=== PATIENT | female | born 1975 | race Caucasian/White ===

== ENCOUNTER 2022-01-11 10:44 | Outpatient (REF) | payer MEDICAID, SELFPAY ==
--- NOTE | ~2022-01-11 | US_ITS ---
EXAMINATION: US PELVIS CLINICAL INFORMATION: Pelvic pain. COMPARISON: None. TECHNIQUE: Ultrasound of the pelvis is performed using both transabdominal and transvaginal transducers along with Doppler. Transvaginal imaging is performed due to inadequate visualization transabdominally. FINDINGS: Uterus: The uterus is anteverted and measures 9.9 x 4.4 x 4.6 cm. The double wall endometrial thickness is 0.7 cm. The uterus is smooth in contour and has normal myometrial echogenicity. No visible fibroid. Adnexa: Both ovaries are visualized. There is normal color flow to the adnexa. There is no ovarian torsion. There is no pelvic ascites or fluid collection. Right ovary measures 3.7 x 2.5 x 2.4 cm and volume 11.6 mL. There is a complex cyst measuring 2.3 x 2.0 x 2.1 cm. Left ovary measures 2.7 x 1.4 x 2.1 cm and volume 4.2 mL. There are prominent vessels in the left adnexa suggestive of pelvic venous congestion. US/US pelvic and transvaginal IMPRESSION: Complex right ovarian cyst measuring 2.3 cm. Unremarkable uterus and left ovary. Mild left pelvic venous congestion.
== END 2022-01-11 10:45 | disposition home or self-care (01) ==
LOC: HO.US 10:44
PROVIDERS: Visit Provider Advanced Practice Midwife
DX: R10.2 Pelvic and perineal pain (principal)
CPT/HCPCS: 76830; 76856

== ENCOUNTER 2022-03-02 09:48 | Outpatient (REF) | payer MEDICAID, SELFPAY ==
--- NOTE | ~2022-03-02 | US_ITS ---
EXAMINATION: US PELVIS CLINICAL INFORMATION: Right ovarian cyst. COMPARISON: None TECHNIQUE: Ultrasound of the pelvis is performed using both transabdominal and transvaginal transducers along with Doppler. Transvaginal imaging is performed due to inadequate visualization transabdominally. FINDINGS: UTERUS: The uterus is anteverted and measures 9.0 x 4.4 x 5.4 cm. The double wall endometrial thickness is 0.87 cm. The uterus is smooth in contour and has normal myometrial echogenicity. No visible fibroid. ADNEXA: Both ovaries are visualized. There is normal color flow to the adnexa. There is no ovarian torsion. There is no pelvic ascites or fluid collection. Right ovary measures 3.8 x 2.3 x 2.4 cm and volume 10.7 mL. There is an anechoic corpus luteum cyst measuring 2.3 x 1.8 x 1.5 cm. Previously it measured 2.3 x 2.0 x 2.1 cm. Previously right ovary measured 3.7 x 2.5 x 2.4 cm and volume 11.6 mL. Left ovary measures 2.5 x 1.7 x 1.8 cm and volume 4.0 mL. It appears unremarkable. Previously left ovary measured 2.7 x 1.4 x 2.1 cm and volume 4.2 mL. US/US pelvic and transvaginal IMPRESSION: Complex right ovarian cyst measuring 2.3 cm similar to previous study of 01/12/2022. No new cysts are seen in the right or the left ovary. The uterus is unremarkable. Previously seen mild left pelvic venous congestion is not apparent at this time. No major change from 01/11/2022.
== END 2022-03-02 09:49 | disposition home or self-care (01) ==
LOC: HO.HMGCX 09:48
PROVIDERS: Visit Provider Advanced Practice Midwife
DX: N83.201 Unspecified ovarian cyst, right side (principal)
CPT/HCPCS: 76830; 76856

== ENCOUNTER 2022-10-06 07:51 | Outpatient (REF) | payer MEDICAID, SELFPAY ==
--- NOTE | ~2022-10-06 | US_ITS ---
EXAMINATION: US ABDOMEN COMPLETE CLINICAL INFORMATION: Epigastric discomfort with nausea. COMPARISON: None TECHNIQUE: Real-time imaging of the abdominal viscera. FINDINGS: PANCREAS: Normal. ABDOMINAL AORTA: The proximal, mid, and distal segments are normal in caliber. INFERIOR VENA CAVA: Visualized portions are normal. LIVER: Normal. The liver is normal in size. The liver contour is normal. Parenchymal echogenicity is normal. No focal hepatic lesion. There is no intrahepatic biliary duct dilatation seen. GALLBLADDER: Surgically absent. COMMON BILE DUCT: Normal in caliber measuring 0.3 cm in diameter. RIGHT KIDNEY: Normal. No hydronephrosis. No renal calculi or focal parenchymal lesions. The kidney measures 11.0 cm in maximum dimension. LEFT KIDNEY: Normal. No hydronephrosis. No renal calculi or focal parenchymal lesions. The kidney measures 9.8 cm in maximum dimension. SPLEEN: Normal. The spleen measures 7.8 cm in maximum dimension. FREE FLUID: None. US/US abdomen complete IMPRESSION: Normal exam
== END 2022-10-06 07:52 | disposition home or self-care (01) ==
LOC: HO.US 07:51
PROVIDERS: PCP Internal Medicine; Visit Provider Family Medicine
DX: R11.0 Nausea (principal)
CPT/HCPCS: 76700

== ENCOUNTER 2022-12-21 | Outpatient (REF) | payer MEDICAID, SELFPAY ==
[2022-12-24 11:27] LABS: H Pylori Breath Test Positive (Negative)
== END 2022-12-21 00:01 | disposition home or self-care (01) ==
LOC: HO.LNP
PROVIDERS: Visit Provider Physician Assistant
DX: Z11.2 Encounter for screening for other bacterial diseases (principal); R11.0 Nausea
CPT/HCPCS: 36415; 83013; 99202

== ENCOUNTER → 2022-12-21 07:50 | Outpatient (BNVA) | payer MEDICAID, SELFPAY | PROVIDERS: PCP Internal Medicine; Referring Provider Internal Medicine; Visit Provider Physician Assistant | DX: R11.0 Nausea (principal); R10.13 Epigastric pain | CPT/HCPCS: 36415 ==

== ENCOUNTER → 2023-01-11 12:46 | Outpatient (BNVA) | payer MEDICAID, SELFPAY | PROVIDERS: PCP Internal Medicine; Visit Provider Physician Assistant | DX: A04.8 Other specified bacterial intestinal infections (principal) | CPT/HCPCS: 99212 ==

== ENCOUNTER 2023-02-22 09:00 | Outpatient (REF) | payer MEDICAID, SELFPAY | END 2023-02-22 09:01 | disposition home or self-care (01) | LOC: HO.LNP 09:00 | PROVIDERS: PCP Internal Medicine; Visit Provider Physician Assistant | DX: A04.8 Other specified bacterial intestinal infections (principal) | CPT/HCPCS: 36415; 83013; 99212 ==

== ENCOUNTER 2023-03-15 09:42 | Outpatient (REF) | payer MEDICAID, SELFPAY ==
--- NOTE | ~2023-03-15 | MM_ITS ---
EXAMINATION: MM SCREENING DIGITAL BREAST TOMOSYNTHESIS, BILATERAL CLINICAL INFORMATION: Screening. Asymptomatic. The lifetime risk of breast cancer based on the Tyrer-Cuzick Model is 10.7%. COMPARISON: Mammography: This study is compared with prior exams dating back to 2019. TECHNIQUE: Digital breast tomosynthesis is performed in both the craniocaudal and mediolateral oblique views along with computer-aided detection (CAD). Synthesized 2D images are generated from the tomosynthesis. FINDINGS: The breasts are heterogeneously dense, which may obscure small masses (ACR BI-RADS breast composition Category c). There are no significant masses, abnormal calcifications, or other abnormalities. MM/MM tomosynthesis screening BI IMPRESSION: No mammographic evidence of malignancy. ASSESSMENT: BI-RADS BI-RADS 1 - Negative RECOMMENDATION: Routine annual mammography screening. 1 year F/U This examination should not preclude the clinical evaluation of a suspicious palpable abnormality. This patient's information was entered into a reminder system with a target due date for their next mammogram.
== END 2023-03-15 09:43 | disposition home or self-care (01) ==
LOC: HO.MAMMO 09:42
PROVIDERS: PCP Internal Medicine; Visit Provider Internal Medicine
DX: Z12.31 Encounter for screening mammogram for malignant neoplasm of breast (principal)
CPT/HCPCS: 77063; 77067

== ENCOUNTER → 2023-03-15 10:30 | Outpatient (BNV) | payer MEDICAID, SELFPAY | PROVIDERS: PCP Internal Medicine; Visit Provider Radiology Diagnostic Radiology | DX: Z12.31 Encounter for screening mammogram for malignant neoplasm of breast (principal) | CPT/HCPCS: 77063; 77067 ==

== ENCOUNTER 2023-03-22 07:50 | Outpatient (AMB) | payer MEDICAID, SELFPAY ==
[2023-03-22 08:48] VITALS: BP 117/68; PULSE 59; BMI 26.7
--- NOTE | 2023-03-22 08:48 | A.OFFVIS_ITS ---
Intake Vital Signs 03/22/23 08:48 Height 5 ft Weight 136 lb 10.986 oz BMI 26.7 BP 117/68 Blood Pressure Location Lt brachial Position Sitting Pulse 59 Intake Visit Reasons: 4 weeks f/u discuss EGD/[facility] Intake Note: Елена presents in office as a est.patient for a 4week f/u PT CC: pt reports having no concerns pt denies any other GI Issues Clinical Quality Assurance Specialist Required: Yes Clinical Quality Assurance Specialist Language: Tajik Accompanied by: Self / Same As Patient Allergies No Known Allergies Allergy (Verified 03/22/23 08:49) Medication List - Last Reconciled 03/22/23 by Teri Khoury PA-C HPI HPI Comments History of Present Illness Details A 47 y/o female follow up seen 02/22-retreat for H pylori however she reports that she only took medication for 5 days in cause her stomach upset she did not want continue. She continues to have intermittent acid reflux-she does drink fair amount of caffeine, however she does not smoke or drink alcohol Though her appetite is good she has need no nausea or vomiting intermittent epigastric discomfort that resolved on its own nothing specific causes symptoms She has normal bowel pattern. No nausea, vomiting, hematemesis, hematochezia fever chills PFSH Surgical History History of tubal ligation Hx of cholecystectomy Family History Maternal Grandmother HTN (hypertension) Mother HTN (hypertension) Maternal Aunt Cancer Social History Household Members: Significant Other and Family Alcohol intake: never Patient Tobacco Use Status: Never used Tobacco Review of Systems Const All systems reviewed & are unremarkable except as noted in HPI and below Card Denies chest pain and Denies dyspnea Resp Denies dyspnea GI Reports abdominal pain, Denies change in bowel habits and Reports heartburn Physical Exam Vital Signs: Last Vital Signs Pulse 59 03/22/23 08:48 BP 117/68 03/22/23 08:48 BMI result Body Mass Index 26.7 Const General: cooperative, healthy appearing, comfortable and no acute distress Orientation/consciousness: patient oriented x3 Limitations: language barrier Eyes Sclerae: sclerae normal Resp Effort & Inspection: normal respiratory effort and able to speak in complete sentences Auscultation: clear to auscultation bilaterally and no wheezes Cardio Rate: regular rate Rhythm: regular rhythm Heart sounds: S1 normal heart sound present and S2 normal heart sound present GI Palpation (GI): Soft to palpation and nontender Auscultation: normal bowel sounds Neuro General: patient oriented x3 Extrem General: Yes full ROM Psych Appearance: grossly normal and well kempt Mental Status: mental status grossly normal Attitude: cooperative Thought content: Normal thought content present Assessment & Plan Assessment & Plan (1) H. pylori infection: Comment: H pylori UBT today-positive, re-treated did not complete antibiotic Code(s): A04.8 - Other specified bacterial intestinal infections Plan: EGD (2) Acid reflux: Code(s): K21.9 - Gastro-esophageal reflux disease without esophagitis Plan: Continue omeprazole 20 mg Avoid culprits EGD (3) Encounter for screening colonoscopy: Code(s): Z12.11 - Encounter for screening for malignant neoplasm of colon Plan: Index screening colonoscopy Plan EGD colonoscopy MiraLax Gatorade Continue omeprazole 20 daily Avoid culprits Orders: Orders EGD/[facility] Combo - GI Use Only Today K21.9 - Gastro-esophageal reflux disease without esophagitis, R11.0 - Nausea, Z12.11 - Encounter for screening for malignant neoplasm of colon Medications: New bisacodyl (Dulcolax (bisacodyl)) Take 4 tablets by mouth at 12:00pm the day before your procedure. 20 mg (4 x 5 mg) PO ONCE 1 day 4 tabs 0RF colonoscopy prep Z12.11 - Encounter for screening for malignant neoplasm of colon polyethylene glycol 3350 (Miralax) Take as directed by mouth the day before your procedure. 238 grams PO ONCE 1 day PRN 238 grams 0RF laxative effect omeprazole 20 mg PO DAILY 30 caps 5RF Patient Instructions: Continue omeprazole 20 mg daily Reflux precautions reviewed EGD colonoscopy, procedures/indications/prep reviewed literature given Aware she needs escort due to anesthesia Encouraged to call questions or concerns Appreciate the opportunity assist in the care the patient Coding Level of Care Code Est Pt Level 3 (34087) Diagnoses H. pylori infection A04.8 Acid reflux K21.9 Encounter for screening colonoscopy Z12.11 Time Spent (min) 30 Comment Clinical Quality Assurance Specialist
== END 2023-03-22 09:59 | disposition home or self-care (01) ==
PROVIDERS: PCP Internal Medicine; Visit Provider Physician Assistant
DX: A04.8 Other specified bacterial intestinal infections (principal); K21.9 Gastro-esophageal reflux disease without esophagitis; Z12.11 Encounter for screening for malignant neoplasm of colon
CPT/HCPCS: 99213

== ENCOUNTER → 2023-03-22 07:50 | Outpatient (BNVA) | payer MEDICAID, SELFPAY | PROVIDERS: PCP Internal Medicine; Visit Provider Physician Assistant | DX: Z12.11 Encounter for screening for malignant neoplasm of colon (principal); K21.9 Gastro-esophageal reflux disease without esophagitis; A04.8 Other specified bacterial intestinal infections | CPT/HCPCS: 99213 ==

== ENCOUNTER 2023-04-11 10:36 | Outpatient (REF) | payer MEDICAID, SELFPAY ==
[2023-04-11 11:19] LABS: Anion Gap 12 (12-20); Blood Urea Nitrogen 5 mg/dL (9-16); Calcium 9.7 mg/dL (8.4-10.2); Carbon Dioxide 23 mmol/L (22-29); Chloride 105 mmol/L (96-108); Estimated Glomerular Filt Rate > 60; Glucose Random 87 mg/dL (60-115); Potassium 3.7 mmol/L (3.3-5.1); Sodium 136 mmol/L (135-145)
[2023-04-11 19:35] LABS: Alanine Aminotransferase 24 U/L (0-31); Albumin Level 4.1 g/dL (3.5-5.0); Alkaline Phosphatase 76 U/L (39-117); Aspartate Amino Transferase 27 U/L (5-31); Bilirubin Direct 0.1 mg/dL (0.0-0.5); Bilirubin Total 0.3 mg/dL (0.0-1.0); Total Protein 7.7 g/dL (6.5-8.0)
== END 2023-04-11 10:37 | disposition home or self-care (01) ==
LOC: HO.HHCL 10:36
PROVIDERS: Visit Provider Emergency Medicine
DX: R10.32 Left lower quadrant pain (principal); R50.9 Fever, unspecified
CPT/HCPCS: 36415; 80048; 80076

== ENCOUNTER 2023-04-16 10:42 | Outpatient (REF) | payer MEDICAID, SELFPAY ==
--- NOTE | ~2023-04-16 | CT_ITS ---
EXAMINATION: CT ABDOMEN AND PELVIS WITH CONTRAST CLINICAL INFORMATION: Left lower quadrant pain, fever and diarrhea. Evaluate for colitis. COMPARISON: None available. TECHNIQUE: Multidetector volumetric images were obtained from the superior aspect of the liver through the pubic symphysis following administration 85 mL of Omnipaque 350 intravenous contrast. Sagittal and coronal reformatted images were obtained on the technologist's workstation. Oral contrast: No This CT examination was performed using dose optimization techniques as appropriate, variously including the following: *Automated exposure control *Adjustment of mA and/or kV according to patient size (this includes techniques or standardized protocols for targeted exams where dose is matched to indication/reason for exam; i.e. extremities or head) *Use of iterative reconstruction technique DLP: mGy-cm FINDINGS: LUNG BASES: The visualized lung bases are unremarkable. LIVER, GALLBLADDER, AND BILIARY TREE: The liver is normal in size, shape, and attenuation. No focal hepatic lesion or biliary ductal dilatation is present. The gallbladder is unremarkable with no evidence of radiopaque gallstones, gallbladder wall thickening, or obvious pericholecystic inflammatory changes. PANCREAS: Unremarkable. SPLEEN: Unremarkable. ADRENAL GLANDS: Unremarkable. KIDNEYS AND URETERS: The kidneys are normal in size, shape, and attenuation. No hydronephrosis, hydroureter, or calculi seen. No perinephric stranding. BLADDER: Unremarkable. GASTROINTESTINAL TRACT: Mild wall thickening of the distal left and proximal sigmoid colon suggestive of mild colitis. Small and large bowel is otherwise normal. No evidence of obstruction, perforation or abscess. Normal appendix. ABDOMINAL WALL: No significant hernia is appreciated. LYMPH NODES: Normal. VASCULAR: Unremarkable. PELVIC VISCERA: Small low-attenuation uterine lesions probably representing small fibroids. Uterus and adnexa are otherwise unremarkable. OSSEOUS STRUCTURES: Unremarkable. CT/CT abdomen pelvis w IV con IMPRESSION: Colitis of the distal colon. Fleischner guidelines were followed.
[2023-04-16] MEDS: iohexoL 350 MG/ML 100 ML INFUS..BTL IV (16:06)
[2023-04-16] MEDS: Barium Sulfate Oral (Berry) 450 ML ORAL.SUSP 900 ML PO (16:06)
== END 2023-04-16 10:43 | disposition home or self-care (01) ==
LOC: HO.CT 10:42
PROVIDERS: PCP Internal Medicine; Visit Provider Emergency Medicine
DX: R10.32 Left lower quadrant pain (principal); R50.9 Fever, unspecified
CPT/HCPCS: 74177; Q9967

== ENCOUNTER 2023-06-28 18:21 | Outpatient (REF) | payer MEDICAID, SELFPAY ==
[2023-07-03 04:53] LABS: HPV mRNA E6/E7 rflx Not Detected (Not Detected)
[2023-07-06 06:03] LABS: C. trachomatis RNA TMA Not Detected (Not Detected); N. gonorrhoeae RNA TMA Not Detected (Not Detected); Trichomonas (NAAT) Not Detected (Not Detected)
== END 2023-06-28 18:22 | disposition home or self-care (01) ==
LOC: HO.HHCLNP 18:21
PROVIDERS: Visit Provider Internal Medicine
DX: Z12.4 Encounter for screening for malignant neoplasm of cervix (principal); Z11.51 Encounter for screening for human papillomavirus (HPV)
CPT/HCPCS: 36415; 81513; 87491; 87591; 87624; 87661; 88142

== ENCOUNTER 2023-12-26 13:21 | Outpatient (REF) | payer MEDICAID, OTHER, SELFPAY ==
--- NOTE | ~2023-12-26 | US_ITS ---
EXAMINATION: MM DIAGNOSTIC DIGITAL BREAST TOMOSYNTHESIS, BILATERAL US BREAST LIMITED, LEFT MAMMOGRAPHY: CLINICAL INFORMATION: 48-year-old female complaining of left breast tenderness and pain 3-4:00 lower outer quadrant. No abnormal palpable abnormality. COMPARISON: Mammography: 03/15/2023, and 06/02/2021, 05/26/2019 ([facility]) TECHNIQUE: Digital breast tomosynthesis is performed in both the craniocaudal and mediolateral oblique views along with computer-aided detection (CAD). Synthesized 2D images are generated from the tomosynthesis. In addition, a full-field 3-D left mediolateral view was also obtained. FINDINGS: The breasts are heterogeneously dense, which may obscure small masses (ACR BI-RADS breast composition Category c). There are no suspicious masses, suspicious grouped calcifications, or areas of architectural distortion in either breast. The parenchymal pattern is stable from prior exams. No abnormality is evident in the lower outer left breast to explain tenderness or pain. This will be evaluated by ultrasound. No skin or axillary abnormalities. ULTRASOUND: CLINICAL INFORMATION: As above. COMPARISON: No prior. TECHNIQUE: Targeted sonographic evaluation was performed using a high frequency linear transducer. Attention was given to the 3-4 o'clock axis of the left breast in the region of pain as directed by the patient. Selected archived documentation. FINDINGS: LEFT BREAST: -At the 3:00 axis, 5 cm from the nipple, there are 2 abutting wider than tall, circumscribed simple cysts, the larger measuring 5 mm and smaller measuring 4 mm. These findings are benign. Otherwise, no masses, abnormal shadowing, or additional cystic findings. US/US breast LT limited mamm only IMPRESSION: There are no findings suspicious for malignancy in either breast. There are no mammographic or sonographic findings to explain left breast pain at the 3-4 o'clock axis. Recommend clinical management. There are 2 sonographically simple cysts at 3:00 axis of the left breast. Otherwise, recommend the patient resume annual screening mammography. OVERALL ASSESSMENT: Mammography: BI-RADS 2 - Benign Findings Ultrasound: BI-RADS 2 - Benign Findings RECOMMENDATION: 1. Patient should be managed based on the clinical impression. 2. Otherwise, routine annual screening mammography. This patient's information was entered into a reminder system with a target due date for their next mammogram. .
== END 2023-12-26 13:22 | disposition home or self-care (01) ==
LOC: HO.MAMMO 13:21
PROVIDERS: PCP Internal Medicine; Visit Provider Emergency Medicine
DX: N64.4 Mastodynia (principal)
CPT/HCPCS: 76642; 77062; 77066

== ENCOUNTER → 2023-12-26 14:30 | Outpatient (BNV) | payer SELFPAY | PROVIDERS: PCP Internal Medicine; Visit Provider Radiology Diagnostic Radiology | DX: N64.4 Mastodynia (principal) | CPT/HCPCS: 76642; 77062; 77066 ==

== ENCOUNTER 2023-12-27 18:02 | Outpatient (REF) | payer MEDICAID, OTHER, SELFPAY ==
[2023-12-28 08:47] LABS: H Pylori Breath Test Positive (Negative)
== END 2023-12-27 18:03 | disposition home or self-care (01) ==
LOC: HO.HHCLNP 18:02
PROVIDERS: Visit Provider Internal Medicine
DX: A04.8 Other specified bacterial intestinal infections (principal)
CPT/HCPCS: 83013

== ENCOUNTER 2023-12-31 08:50 | Outpatient (REF) | payer MEDICAID, OTHER, SELFPAY ==
[2023-12-31 11:28] LABS: MANUAL DIFF FLAG NO
[2023-12-31 11:47] LABS: Basophils Absolute Auto 0.1 X10*3/uL (0.0-0.2); Basophils Percent Auto 1.3 % (0-2); Eosinophils Absolute Auto 0.3 X10*3/uL (0.0-0.4); Eosinophils Percent Auto 3.5 % (0-4); Hematocrit 38.5 % (37.0-47.0); Hemoglobin 13.2 g/dl (12.0-16.0); Imm Gran Abs Auto 0.02 X10*3/uL (0.00-0.03); Imm Gran Pct Auto 0.3 % (0.0-0.4); Lymphocytes Absolute Auto 2.7 X10*3/uL (1.2-4.9); Lymphocytes Percent Auto 33.6 % (20-40); Mean Corpuscular HGB Conc 34.3 g/dl (31.0-35.0); Mean Corpuscular Hemoglobin 29.1 pg (27.0-33.0); Mean Platelet Volume 9.3 fL (9.4-12.3); Monocytes Absolute Auto 0.6 X10*3/uL (0.1-1.2); Monocytes Percent Auto 7.6 % (2-11); Neutrophils Absolute Auto 4.3 x10*3/uL (2.0-8.3); Neutrophils Percent Auto 53.7 % (45-73); Platelet Count 350 X10*3/uL (160-400); Red Blood Count 4.53 X10*6/uL (4.20-5.50); Red Cell Distribution Width 13.7 % (11.0-16.0)
[2023-12-31 11:57] LABS: Estimated Average Glucose 103 mg/dL; Hemoglobin A1c % 5.2 % (<6.0)
[2023-12-31 12:12] LABS: ~Hepatitis C Antibody Nonreactive (Nonreactive)
[2023-12-31 12:17] LABS: Anion Gap 15 (12-20); Blood Urea Nitrogen 13 mg/dL (9-16); Calcium 9.4 mg/dL (8.4-10.2); Carbon Dioxide 23 mmol/L (22-29); Chloride 105 mmol/L (96-108); Estimated Glomerular Filt Rate > 60; Glucose Random 85 mg/dL (60-115); Potassium 4.5 mmol/L (3.3-5.1); Sodium 138 mmol/L (135-145)
[2023-12-31 12:22] LABS: Vitamin D 25-OH Total 31.1 ng/mL (>30)
[2023-12-31 12:27] LABS: Folate 15.6 ng/mL (> or = 4.0); Vitamin B12 657 pg/mL (200-900)
[2024-01-02 14:44] LABS: RPR Rapid Plasma Reagin NON-REACTIVE (NON-REACTIVE)
[2024-01-02 17:59] LABS: HIV RNA PCR Qn Copies Not Detected Copies/mL; HIV RNA PCR Qn Log Copies Not Detected Log cps/mL
== END 2023-12-31 08:51 | disposition home or self-care (01) ==
LOC: HO.HHCLNP 08:50
PROVIDERS: Visit Provider Internal Medicine
DX: R41.840 Attention and concentration deficit (principal)
CPT/HCPCS: 36415; 80048; 82306; 82607; 82746; 83036; 84443; 85025; 86592; 86803; 87536; 87900

== ENCOUNTER 2024-04-14 16:55 | Outpatient (REF) | payer MEDICAID, OTHER, SELFPAY ==
[2024-04-15 09:12] LABS: H Pylori Breath Test Positive (Negative)
== END 2024-04-14 16:56 | disposition home or self-care (01) ==
LOC: HO.HHCLNP 16:55
PROVIDERS: Visit Provider Internal Medicine
DX: A04.8 Other specified bacterial intestinal infections (principal)
CPT/HCPCS: 83013

== ENCOUNTER 2025-01-23 08:52 | Outpatient (REF) | payer MEDICAID, OTHER, SELFPAY ==
--- OUTSIDE RECORDS SUMMARY | 2025-01-23 09:09 | XMS_ITS | Encounter Summary ---
Author Organization [facility] Address [address] [place] [address] Care Team Providers Care Business Planner Name Role Phone Tamara Metzger MD Primary Care Provider Encounter Details Date Type Department Care Team (Late st Contact Info) Description 01/19/2025 Documentation [facility] [address] [place] [phone] Tracer Bullet Section Supervisor: Gavin Campos MD [address] [place] [phone] Social History Tobacco Use Types Packs/Day Years Used Date Smoking Tobacco: Never Smokeless Tobacco: Never Alcohol Use Standard Drinks/Week Comments Not Currently 0 (1 standard drink = 0.6 oz pur e alcohol) Comments No Sex and Gender Information Value Date Recorded Sex Assigned at Female 01/03/2024 8:10 AM EDT Legal Sex Female 8:06 AM EDT Gender Identity Not on file Sexual Orientation Not on file documented as of this encounter Progress Notes * Gavin Mendez MD - 01/19/2025 10:52 AM EDT See other note documented in this encounter Plan of Treatment Upcoming Encounters Date Type Department Care Team (Late st Contact Info) Description 04/07/2025 10:00 AM EDT Follow-Up [facility] [address] [place] [id number] Gavin Mendez MD [address] [place] [phone] documented as of this encounter Goals Goal Patient Goal Type Associated Problems Recent Progress Patient-Stated? Author Autogenerat ed Goal Care Plan Autogenerated Problem No Roger Sera documented as of this encounter Visit Diagnoses Not on filedocumented in this encounter Additional Health Concerns Active Problems Noted Date Diagnosed Date Autogenerated Problem 01/15/2025 documented as of this encounter Care Teams Business Planner Relationship Specialty Start Date End Date Tamara Metzger MD [address] [place] [address] PCP - General Internal Medicine 01/03/24 documented as of this encounter
[2025-01-23 12:44] LABS: Alanine Aminotransferase 13 U/L (0-31); Alkaline Phosphatase 45 U/L (39-117); Aspartate Amino Transferase 20 U/L (5-31); Bilirubin Direct 0.2 mg/dL (0.0-0.5); Bilirubin Total 0.7 mg/dL (0.0-1.0); Cholesterol 191 mg/dL (<200); HDL Cholesterol 84 mg/dL (>40); LDL Cholesterol Calculated 98 mg/dL (<100); TSH reflex Free T4 1.37 uIU/mL (0.32-4.0); Total Protein 6.8 g/dL (6.5-8.0); Triglycerides 45 mg/dL (<150)
== END 2025-01-23 08:53 | disposition home or self-care (01) ==
LOC: HO.HHCL 08:52
PROVIDERS: Visit Provider Internal Medicine
DX: R41.840 Attention and concentration deficit (principal); L65.9 Nonscarring hair loss, unspecified
CPT/HCPCS: 36415; 80061; 80076; 84443